=== PATIENT | male | born 1965 | race Caucasian/White ===

== ENCOUNTER 2017-04-02 11:39 | Emergency (ER) | payer OTHER ==
[2017-04-02 11:44] VITALS: BMI 27.4
[2017-04-02 11:46] VITALS: RESP 18; TEMP 98
--- NOTE | 2017-04-02 13:18 | C.PDOC ---
History Of Present Illness 51 yo male w/PMHx of HTN, alcohol abuse come in for evaluation of Left foot pain and swelling noted since today AM. As per family, "he stands a lot at work and this AM swelling was really bed, now slightly better". Pt denies recent trauma or injury, fever, chills, CP, SOB, dyspnea, diaphoresis, cough, denies skin changes to Left foot, left calf foot, denies weakness, sensory or vascular deficits to Left foot. Ambulate to ED, not in any apparent distress. Time Seen by Provider: 04/02/17 11:57 Chief Complaint (Nursing): Lower Extremity Problem/Injury History Per: Patient History/Exam Limitations: no limitations Onset/Duration Of Symptoms: Sudden Onset (Since morning) Past Medical History Reviewed: Historical Data, Nursing Documentation, Vital Signs Vital Signs: Last Vital Signs Temp 98.0 F 04/02/17 11:45 Pulse 100 H 04/02/17 11:45 Resp 18 04/02/17 11:45 BP 146/92 H 04/02/17 11:45 Pulse Ox 100 04/02/17 13:28 - Medical History PMH: Gastritis, HTN, Hypercholesterolemia Family History: States: No Known Family Hx - Social History Hx Tobacco Use: Yes Hx Alcohol Use: Yes Hx Substance Use: No - Immunization History Hx Tetanus Toxoid Vaccination: No Hx Influenza Vaccination: No Hx Pneumococcal Vaccination: No Review Of Systems Except As Marked, All Systems Reviewed And Found Negative. Constitutional: Negative for: Fever, Chills Cardiovascular: Negative for: Chest Pain Respiratory: Negative for: Cough, Shortness of Breath Musculoskeletal: Positive for: Foot Pain (Left foot pain ) Neurological: Negative for: Weakness, Numbness Physical Exam - Physical Exam Appears: Well, Non-toxic, No Acute Distress Skin: Normal Color, Warm, Other (mild warm, diffuse slight erythema, edema nad tenderness to dorsal aspect Left foot. no proximal streaking.) Oral Mucosa: Moist Neck: Trachea Midline, Supple Cardiovascular: Rhythm Regular Respiratory: No Decreased Breath Sounds, No Accessory Muscle Use, No Stridor, No Wheezing Gastrointestinal/Abdominal: Soft, No Tenderness Extremity: Normal ROM (Left LE), Tenderness (diffuse slight tenderness over dorsal asepct Left foot. FAROM, no neurovascular deficits distally.), No Pedal Edema, No Calf Tenderness (Left), No Deformity Neurological/Psych: Oriented x3, Normal Speech, Normal Motor, Normal Sensation, Normal Reflexes ED Course And Treatment O2 Sat by Pulse Oximetry: 100 Pulse Ox Interpretation: Normal - Other Rad X-Ray - Left Foot X-Ray: Interpreted by Me, Viewed By Me Interpretation: no acute fx or dislocation, (+) osteoporosis - CT Scan/US Venous Dopplar - Left Foot Other Rad Studies (CT/US): Interpreted By Me, Read By Radiologist CT/US Interpretation: (-) DVT of LLE Progress Note: On re-eavluation, pt is afebrile, hemodynamicalys table. NOn- toxic. Ambulatory in ED with stable gait. PulseOx 100% RA. CVS: (+)S1S2, reg. Lungs: CTA B/L, BS equal B/L. ABd: benign. LLE: exam c/w foot edema, warmth, mild erythema. FAROM, no neurovascular deficits, no pedal edema. Xray c /w osteoporosis, DJD, no acute fx. Doppler US (-) DVT of LLE. Pt has clinical findings c/w left foot edema r/o arthritis vs cellulitis. Pt advised. ref. to F/u with PMD in 2-3 days for re-eavl. return if any new changes. Medical Decision Making Medical Decision Making: PLAN: * X-Ray - Left Foot * Venous Dopplar Disposition Counseled Patient/Family Regarding: Studies Performed, Diagnosis, Need For Followup, Rx Given - Disposition Referrals: [facility] [Outside] Disposition: HOME/ ROUTINE Disposition Time: 14:20 Condition: STABLE Additional Instructions: Keep feet up elevated Take medication as prescribed Follow up with PMD in 2-3 days for re-evaluation. Return to ED if any worsening or new changes. Prescriptions: Sulfamethoxazole/Trimethoprim [Bactrim DS 800 mg-160 mg] 1 tab PO BID #14 tab Instructions: Cellulitis (ED), Leg Edema (ED) - Clinical Impression Clinical Impression: Edema of foot, Cellulitis - PA / COMMUNITY SERVICE OFFICER COORDINATOR / Resident Statement MD/DO has reviewed & agrees with the documentation as recorded. - Scribe Statement The provider has reviewed the documentation as recorded by the Scribe Marissa Escobar All medical record entries made by the Scribe were at my direction and personally dictated by me. I have reviewed the chart and agree that the record accurately reflects my personal performance of the history, physical exam, medical decision making, and the department course for this patient. I have also personally directed, reviewed, and agree with the discharge instructions and disposition.
[2017-04-02] MEDS ORDERED: Tmp-Smz 800 mg-160 mg DS Tab PO STA (14:10)
--- NOTE | 2017-04-02 14:48 | RAD ---
PROCEDURE: Left Foot Radiographs. HISTORY: pain and swelling COMPARISON: None. FINDINGS: BONES: Small plantar calcaneal spur. No acute fracture. JOINTS: Mild talonavicular osteoarthritis. Remaining joint spaces and articular surfaces are preserved. SOFT TISSUES: Normal. OTHER FINDINGS: None. IMPRESSION: Talonavicular osteoarthritis. Plantar calcaneal spur. No additional abnormality.
[2017-04-02] MEDS ORDERED: Tmp-Smz 800 mg-160 mg DS Tab ONE (15:10)
[2017-04-02 15:14] VITALS: BP 132/75; PULSE 89; O2SAT 100
--- NOTE | 2017-04-03 08:22 | VASCLAB ---
PROCEDURE: Left Lower Extremity Venous Duplex Exam. HISTORY: pain and swelling PRIORS: None. TECHNIQUE: Left common femoral, femoral, popliteal and posterior tibial, peroneal and great saphenous veins were evaluated. Flow was assessed with color Doppler, compressibility, assessment of phasic flow and augmentation response. Report prepared by KAREN Boss, RVT FINDINGS: LEFT: 1. Common Femoral Vein: 1.1. Compressibility - Fully compressible: Thrombus - None : Flow - Phasic: Augmentation -Normal: Reflux - None. 2. Femoral Vein: 2.1. Compressibility - Fully compressible: Thrombus - None: Flow - Phasic: Augmentation -Normal: Reflux - None. 3. Popliteal Vein: 3.1. Compressibility - Fully compressible: Thrombus - None: Flow - Phasic: Augmentation -Normal: Reflux - None. 4. Posterior Tibial Vein: 4.1. Compressibility - Fully compressible: Thrombus - None: Flow - Phasic: Augmentation -Normal: Reflux - None. 5. Peroneal Vein: 5.1. Compressibility - Fully compressible: Thrombus - None: Flow - Phasic: Augmentation -Normal: Reflux - None. 6. Great Saphenous Vein: 6.1. Compressibility - Fully compressible: Thrombus - None: Flow - Phasic: Augmentation - Normal: Reflux - None. OTHER FINDINGS: IMPRESSION: No evidence of deep or superficial vein thrombosis of the left lower extremity with excellent venous flow. Normal valve function noted of the left side. Normal venous flow noted in the right common femoral vein.
== END 2017-04-02 15:14 | disposition home or self-care (01) ==
LOC: C.ER 11:39
DX: L03.116 Cellulitis of left lower limb (principal); R60.0 Localized edema